=== PATIENT | female | born 1970 | race Caucasian/White ===

== ENCOUNTER 2019-03-30 04:42 | Emergency (ER) | payer SELFPAY ==
[~2019-03-30] VITALS: Ht 154.9 cm; Wt 55.2 kg
[~2019-03-30 04:42] MED LIST: DOCU-131 PO; HYDR-3237 PO; ONDA4TAB12 PO; POLY17PO5 PO; SIMV20TA PO
--- NOTE | 2019-03-30 05:14 | NUR ---
Patient presents to ER c/o abd pain. She states she is addicted to opioids and has been for years but wants to stop. She quit taking any on Saturday and has since developed abd pain, nausea, and chills. Patient has been through opioid withdrawals before and this is what it feels like. She has never been to rehab but is willing to try this time. Patient is in NAD. Respirations even and unlabored.
[2019-03-30] MEDS ORDERED: LORazepam 2 MG/ML, 1ML IVPush ONE ×2 (05:30→07:30)
[2019-03-30] MEDS ORDERED: SODIUM CHLORIDE FLUSH 10ML SYR IVF ONE (05:30)
[2019-03-30] MEDS ORDERED: ONDANSETRON 2MG/ML, 2ML IVPush ONE (05:30)
[2019-03-30] MEDS ORDERED: MAALOX/HYOSCYAMINE/LIDOCAINE 45 ML BTL PO ONE (05:30)
[2019-03-30] MEDS ORDERED: SODIUM CHLORIDE 0.9% 1,000ML IVBOLUS ONE (05:30)
[2019-03-30] MEDS ORDERED: LORazepam 2 MG/ML, 1ML ONE ×2 (05:39→07:17)
[2019-03-30] MEDS ORDERED: MAALOX/HYOSCYAMINE/LIDOCAINE 45 ML BTL ONE (05:39)
[2019-03-30] MEDS ORDERED: ONDANSETRON 2MG/ML, 2ML ONE (05:39)
[2019-03-30 06:01] LABS: BASOPHILS # (AUTO) 0.05 x10^3/uL (0-0.1); BASOPHILS % (AUTO) 0 % (0-1); EOSINOPHILS # (AUTO) 0.06 x10^3/uL (0-0.4); EOSINOPHILS % (AUTO) 1 % (1-7); LYMPHOCYTES % (AUTO) 24 % (22-44); MD NO; MEAN CORPUSCULAR HEMOGLOBIN 31.3 pg (27.0-34.8); MEAN CORPUSCULAR HGB CONC 33.9 g/dL (32.4-35.8); MEAN CORPUSCULAR VOLUME 92.5 fL (80-100); MEAN PLATELET VOLUME 8.3 fL (7.4-10.4); MONOCYTES # (AUTO) 0.63 x10^3/uL (0.2-0.8); MONOCYTES % (AUTO) 6 % (2-9); NEUTROPHILS # (AUTO) 7.16 x10^3/uL (1.8-6.8); NEUTROPHILS % (AUTO) 69 % (42-75); PLATELET COUNT 299 x10^3/uL (130-400); RED BLOOD COUNT 4.32 x10^6/uL (3.82-5.3); RED CELL DISTRIBUTION WIDTH 12.8 % (9.6-15.2)
--- NOTE | 2019-03-30 06:03 | NUR ---
Patient has visible tremors. Medicated patient per apr.
[2019-03-30 06:13] LABS: ALANINE AMINOTRANSFERASE 19 U/L (12-78); ALBUMIN 3.6 g/dL (3.4-5.0); ANION GAP 7 mmol/L (5-15); CALCIUM 8.9 mg/dL (8.5-10.1); CHLORIDE 113 mmol/L (98-107); CREATININE 0.53 mg/dL (0.55-1.02)
[2019-03-30 06:16] LABS: ALKALINE PHOSPHATASE 76 U/L (45-117); BILIRUBIN,TOTAL 0.3 mg/dL (0.2-1.0); TOTAL PROTEIN 7.3 g/dL (6.4-8.2)
--- NOTE | 2019-03-30 06:54 | NUR ---
Report given to LENA Estrada.
--- NOTE | 2019-03-30 06:55 | NUR ---
RECEIVED REPORT FROM [facility] AND [facility]
[2019-03-30] MEDS ORDERED: POTASSIUM CHLORIDE 20 MEQ TAB.ER.PRT PO ONE (07:00)
[2019-03-30] MEDS ORDERED: POTASSIUM CHLORIDE 20 MEQ TAB.ER.PRT ONE (07:23)
[2019-03-30] MEDS ORDERED: DIPHENHYDRAMINE 50 MG/ML, 1ML ONE (07:26)
[2019-03-30] MEDS ORDERED: DIPHENHYDRAMINE 50 MG/ML, 1ML IVPush ONE (07:30)
[2019-03-30 07:34] VITALS: BP 132/84
--- NOTE | 2019-03-30 07:35 | NUR ---
PT UOB TO BATHROOM WITH . PT IS SHAKY AND HAS ABDOMINAL PAIN. RECEIVED ADDTIONAL ORDERS FOR SAME.
--- NOTE | 2019-03-30 08:33 | NUR ---
PT'S SPOKE WITH [facility] AND THEY ARE HOLDING A BED FOR HER. PT GIVEN DISCHARGE. PT TO DISCHARGE WINDOW VIA W/C WITH
== END 2019-03-30 08:35 ==
LOC: ED 08:32
DX: F11.23 Opioid dependence with withdrawal (principal); R11.2 Nausea with vomiting, unspecified; R53.83 Other fatigue; M79.10 Myalgia, unspecified site
CPT/HCPCS: 36415; 80053; 83605; 83690; 85025; 96374; 96375; 96376; 99283; J1200; J2060; J2405; J7030